=== PATIENT | male | born 1965 | race Caucasian/White ===

== ENCOUNTER 2018-10-02 18:15 | Emergency (ER) | payer SELFPAY ==
[~2018-10-02] VITALS: Ht 165.1 cm; Wt 71.8 kg
[2018-10-02] MEDS ORDERED: ADENOSINE 6 MG INJ IV ONE ×2 (18:30→19:00)
[2018-10-02 19:02] VITALS: Ht 165.1 cm; Wt 71.8 kg
[2018-10-02 19:40] VITALS: BP 118/93; PULSE 89; RESP 18
--- NOTE | 2018-10-02 20:25 | ERD ---
ER Documentation Chief Complaint Chief Complaint TACHYCARDIA/PALPITATIONS TODAY HPI Patient is a 53-year-old male with hypertension who presents with chest pain and palpitations. His symptoms started 2 hours ago. He has had no treatment as of yet. The patient has had symptoms which have been constant. He has never had this before. He does not currently have a primary doctor. Upon review of old medical records this is the patient's first visit to the emergency department. ROS All systems reviewed and are negative except as per history of present illness. PMhx/Soc Medical and Surgical Hx: pt denies Surgical Hx History of Surgery: No Anesthesia Reaction: No Hx Neurological Disorder: No Hx Respiratory Disorders: No Hx Cardiac Disorders: Yes (HTN) Hx Psychiatric Problems: No Hx Miscellaneous Medical Probl: No Hx Alcohol Use: No Hx Substance Use: No Hx Tobacco Use: No Smoking Status: Never smoker FmHx Family History: No coronary disease Physical Exam Vitals Vital Signs Date Temp Pulse Resp B/P (MAP) Pulse Ox O2 O2 Flow FiO2 Time Delivery Rate 10/02/18 98.0 89 18 118/93 100 Nasal 2.0 19:40 (101) Cannula 10/02/18 99 18 118/93 100 Nasal 2.0 19:03 (101) Cannula 10/02/18 98.0 186 28 124/107 96 19:02 (113) 10/02/18 Nasal 2 18:55 Cannula 10/02/18 109 18 126/96 100 Nasal 18:49 (106) Cannula 10/02/18 Nasal 2.0 18:30 Cannula Physical Exam Const: No acute distress Head: Atraumatic Eyes: Normal Conjunctiva ENT: Normal External Ears, Nose and Mouth. Neck: Full range of motion. No meningismus. Resp: Clear to auscultation bilaterally Cardio: Tachycardic rate without murmur Abd: Soft, non tender, non distended. Normal bowel sounds Skin: No petechiae or rashes Back: No midline or flank tenderness Ext: No cyanosis, or edema Neur: Awake and alert Psych: Normal Mood and Affect Result Diagram: 10/02/180 10/02/18 1830 Results 24 hrs Laboratory Tests Test 10/02/18 18:30 White Blood Count 8.6 10^3/ul Red Blood Count 4.53 10^6/ul Hemoglobin 14.1 g/dl Hematocrit 40.4 % Mean Corpuscular Volume 89.2 fl Mean Corpuscular Hemoglobin 31.1 pg Mean Corpuscular Hemoglobin Concent 34.9 g/dl Red Cell Distribution Width 12.5 % Platelet Count 295 10^3/UL Mean Platelet Volume 9.4 fl Immature Granulocytes % 0.200 % Neutrophils % 49.7 % Lymphocytes % 37.1 % Monocytes % 11.5 % Eosinophils % 0.8 % Basophils % 0.7 % Nucleated Red Blood Cells % 0.0 /100WBC Immature Granulocytes # 0.020 10^3/ul Neutrophils # 4.3 10^3/ul Lymphocytes # 3.2 10^3/ul Monocytes # 1.0 10^3/ul Eosinophils # 0.1 10^3/ul Basophils # 0.1 10^3/ul Nucleated Red Blood Cells # 0.0 10^3/ul Sodium Level 142 mmol/L Potassium Level 4.1 mmol/L Chloride Level 107 mmol/L Carbon Dioxide Level 26 mmol/L Anion Gap 9 Blood Urea Nitrogen 18 mg/dl Creatinine 0.84 mg/dl Est Glomerular Filtrat Rate mL/min > 60 mL/min Glucose Level 118 mg/dl Calcium Level 9.8 mg/dl Troponin I < 0.012 ng/ml Current Medications Medications Dose Sig/Tomasa Start Time Status Last (Trade) Ordered Route PRN Stop Time Admin Dose Reason Admin Adenosine 6 mg ONCE ONCE 10/02/18 DC 10/02/18 (Adenosine) IV 18:30 19:10 10/02/18 18:31 Adenosine 12 mg ONCE ONCE 10/02/18 DC 10/02/18 (Adenosine) IV 19:00 19:11 10/02/18 19:01 Procedures/MDM EKG #1 read by me: Rate/Rhythm: SVT Intervals: Normal Impression: SVT without ischemia EKG 2 read by me: Rate/Rhythm: Regular rate and rhythm Intervals: Normal Impression: SVT has resolved and is now in sinus rhythm X-ray read by radiology. Patient is a 53-year-old male who presents with SVT. Patient was given 6 mg and then 12 mg of adenosine and his SVT converted to sinus rhythm. He feels better. Laboratory studies were basically negative. The patient will be discharged but will need to follow-up with a primary doctor within 1 week as he does not currently have a primary doctor. He can return for any worsening symptoms. I believe outpatient management is appropriate. Critical Care: Time: 35 minutes excluding all billable procedures. Treatments/Evaluations: Close monitoring and treatment of unstable vital signs, cardiorespiratory, and neurologic status, while maintaining tight balance of fluid, respiratory, and cardiac interventions. Departure Diagnosis: Primary Impression: SVT (supraventricular tachycardia) Condition: Fair Patient Instructions: SVT [facility] Usted se andino hecho un examen mdico de control que le indica que no est en jorge l condicin que requiera tratamiento urgente en el Departamento de Emergencia. Un estudio ms profundo y el tratamiento de valdez condicin pueden esperar sin ningn riesgo hasta que usted sea atendida/o en el consultorio de valdez mdico o jorge l clnica. Es responsabilidad suya arreglar jorge l orly para el seguimiento del william. MANEJO DE CONDICIONES NO URGENTES EN EL FUTURO 1) Si usted tiene un mdico de atencin primaria: Usted debera llamar a valdez mdico de atencin primaria antes de venir al departamento de emergencia. Despus de las horas de consultorio, valdez doctor o valdez asociado/a est disponible por telfono. El mdico o enfermero de michele en el servicio telefnico puede asesorarle por kirk medio para atender el problema, o william contrario se puede programar jorge l orly. 2) Si usted no tiene un mdico de atencin primaria: Llame al mdico o clnica de referencia que aparece abajo deirdre las horas de consultorio para hacer jorge l orly para que le vean. CLINICAS: [facility] [phone] [facility] [phone] [facility] [facility] [phone] [facility] [phone] [facility] [phone] [facility] [phone] [address] Additional Instructions: Llame al doctor nombrado abajo (Referral Sources) MAANA y tyrese jorge l ORLY PARA DENTRO DE JORGE L SEMANA. Dgale a la secretaria que nosotros le instruimos hacer esta orly.Avise o llame si valdez condicin se empeora antes de la orly. ANSELMO WALTERS MD Oct 02, 2018 20:25
== END 2018-10-02 19:40 | disposition home or self-care (01) ==
LOC: E/R 18:15
DX: I47.1 Supraventricular tachycardia (principal); I10 Essential (primary) hypertension
CPT/HCPCS: 36415; 71045; 80048; 84484; 85025; 93005; 96374; 99285; J0153